=== PATIENT | male | born 1995 ===

== ENCOUNTER 2020-06-05 11:09 | Outpatient (REF) | payer MEDICARE, SELFPAY | END 2020-06-05 11:10 | disposition home or self-care (01) | LOC: HO.LAB 11:09 | PROVIDERS: PCP Nurse Practitioner Family; Visit Provider Internal Medicine | DX: Z20.828 Contact with and (suspected) exposure to other viral communicable diseases (principal) | CPT/HCPCS: C9803; U0003 ==

== ENCOUNTER 2022-06-05 12:13 | Emergency (ER) | payer SELFPAY ==
[2022-06-05 12:42] VITALS: BP 141/76; PULSE 96; RESP 18; TEMP 36.8; O2SAT 96; BMI 34.7
--- NOTE | 2022-06-05 12:46 | ED_ITS ---
HPI - General Adult General Chief complaint: Upper Respiratory Symptoms Stated complaint: COVID + Sore Throat Time Seen by Provider: 06/05/22 12:45 Source: patient Mode of arrival: ambulatory Limitations: no limitations History of Present Illness HPI narrative: Patient is a 26 year old assigned male at with no reported medical history presenting to the emergency department today with a sore throat. Patient states that he was diagnosed with COVID-19 on the week of and is still having a sore throat. Patient denies any dizziness, lightheadedness, abdominal pain, nausea, vomiting, fever, chills, blurry vision, double vision, loss of vision, chest pain, difficulty breathing, shortness of breath, back pain, night sweats, pain with urination, increased urinary frequency, increased urinary urgency, blood in his urine or stool, syncope or a near syncopal episode, recent trauma or falls, bowel incontinence, bladder incontinence, bowel retention, bladder retention, or any other complaints at this time. Onset (ago): day(s) Radiation: non-radiation Severity: mild Severity scale (1-10): 2 Relieving factors: none Exacerbating factors: none Associated symptoms: denies other symptoms Treatments prior to arrival: none Related Data Previous Rx's Medication Instructions Recorded lidocaine HCl 2 % mucosal solution 1.25 ml mucous membrane BID #100 mL 06/05/22 (Lidocaine Viscous) prednisone 20 mg tablet 20 mg PO DAILY 5 days #5 tabs 06/05/22 Allergies Allergy/AdvReac Type Severity Reaction Status Date / Time No Known Allergies Allergy Unverified 03/21/20 16:53 Review of Systems Constitutional: Constitutional: Reports no additional constitutional complaints, Denies chills, Denies fever(s) and Denies night sweats Eyes: Eyes: Reports no additional eye complaints, Denies blurry vision, Denies change in vision, Denies diplopia, Denies eye discharge, Denies loss of vision and Denies eye pain ENT: Denies dizziness and Reports sore throat Cardiovascular: Cardiovascular: Reports no additional cardiovascular complaints, Denies chest pain, Denies lightheadedness, Denies Loss of Consciousness and Denies dyspnea Respiratory: Respiratory: Reports no additional respiratory complaints and Den ies dyspnea Gastrointestinal: Gastrointestinal: Reports no additional gastrointestinal complaints, Denies abdominal pain, Denies melena, Denies hematochezia, Denies change in bowel habits and Denies change in stool character Genitourinary: Genitourinary: Reports no additional male genitourinary complaints, Denies hematuria, Denies oliguria, Denies difficulty urinating, Denies dysuria, Denies urinary frequency, Denies urinary hesitancy, Denies urinary incontinence and Denies urinary urgency Musculoskeletal: Musculoskeletal: Reports no additional musculoskeletal complaints, Denies numbness and Denies tingling Neurologic: Denies dizziness, Denies loss of vision, Denies numbness and Denies tingling Psychiatric: Psychiatric: Reports no additional psychiatric complaints Endocrine: Endocrine: Reports no additional endocrine complaints Hematologic/Lymphatic: Hematologic/Lymphatic: Reports no additional hematologic/lymphatic complaints Allergic/Immunologic: Allergic/Immunologic: Reports no additional allergic/immunologic complaints [facility] Past Medical History Attestation statement: The following information was validated with the patient. Source: old records reviewed Social History Social History Advance Directives: No Advance Directives Information Provided: No Physical Exam ED Vital Signs: Vital Signs - 24 hr 06/05/22 12:42 Temperature 98.3 F Pulse Rate 96 Respiratory Rate 18 Blood Pressure 141/76 H Pulse Oximetry 96 Oxygen Delivery Method Room Air BMI result Body Mass Index 34.7 Const General: cooperative, no acute distress, alert and awake Nutritional Appearance: well nourished Orientation/consciousness: patient oriented x3 Limitations: no limitations HENMT Head: Yes normal to inspection and Yes atraumatic Ears: hearing grossly normal bilaterally and external ears normal General nose exam: Normal external nose present, no nasal discharge noted and no epistaxis Face and sinus: Yes normal facial exam, No abrasion and No laceration Mouth: Normal oral and palatal mucosa present, no drooling and no muffled voice Throat: Yes posterior oropharynx normal Eyes General: appearance normal, both eyes and all related structures Periorbital: periorbital findings normal Eyelids: Yes eyelids normal Conjunctivae: conjunctivae normal Pupils: Equal, round and reactive pupils present EOM: EOMs intact bilaterally Neck Neck: Yes normal visual inspection, Yes full ROM and Yes no lymphadenopathy Chest Chest palpation & inspection: normal inspection of the chest Resp Effort & Inspection: normal respiratory effort and able to speak in complete sentences Auscultation: clear to auscultation bilaterally Cardio Rate: regular rate Rhythm: regular rhythm GI Inspection: Yes normal to inspection Neuro General: patient oriented x3 and moves all extremities Cranial nerves: Yes Equal, round and reactive pupils present Cognition (Neuro): normal cognition Motor exam (neuro): 5/5 motor strength present throughout Sensory Exam: Normal double simultaneous stimulation for sensation Coordination: [id number] test normal Extrem General: Yes normal to inspection, Yes full ROM and Yes capillary refill normal Psych Appearance: grossly normal Mental Status: mental status grossly normal Affect: normal affect Attitude: cooperative Thought process: Normal thought process present Thought content: Normal thought content present Insight: Good insight present (Psych) Medical Decision Making MDM Narrative Medical decision making narrative: Patient is a 26 year old assigned male at with no reported medical history presenting to the emergency department today with a sore throat. Patient's physical exam was unremarkable. Patient's clinical presentation is most consistent with persistent COVID-19 symptoms / pharyngitis. I explained my physical exam findings as well as all test results to the patient. I answered all questions asked by the patient. I stressed the importance of the patient taking his medication as prescribed. I stressed the importance of the patient following up with his primary care provider. I stressed the importance of the patient returning to the emergency department immediately if his symptoms were to worsen or if he were to develop any dizziness, shortness of breath, difficulty breathing, chest pain, blurry vision, loss of vision, nausea, vomiting, abdominal pain, fever, chills, back pain, or any other complaints. Patient verbalized agreement and understanding with this treatment plan and discharge. Medical Records Medical records reviewed: Yes I reviewed the patient's medical records. Discharge Plan Discharge Clinical Impression: Pharyngitis Patient Disposition: Home, Self-Care Instructions: Pharyngitis (ED) Additional Instructions: Follow up with your primary care provider. Return to the emergency department immediately if your symptoms worsen or if you develop any dizziness, shortness of breath, difficulty breathing, chest pain, blurry vision, loss of vision, nausea, vomiting, abdominal pain, fever, chills, back pain, or any other complaints. Prescriptions: New prednisone 20 mg tablet 20 mg PO DAILY 5 Days Qty: 5 0RF lidocaine HCl [Lidocaine Viscous] 2 % solution 1.25 ml mucous membrane BID Qty: 100 0RF Referrals: Esme Camarillo NP [Primary Care Provider] - Interventions: ED Discharge Assessment Last Done: 06/05/22 12:51 Discharge Date/Time: 06/05/22 12:53 Print Language: Maltese
== END 2022-06-05 12:53 | disposition home or self-care (01) ==
PROVIDERS: Emergency Provider Student in an Organized Health Care Education/Training Program; PCP Nurse Practitioner Family
DX: J02.9 Acute pharyngitis, unspecified (principal); U07.1 COVID-19
CPT/HCPCS: 99282

== ENCOUNTER 2022-12-13 12:55 | Emergency (ER) | payer SELFPAY ==
--- NOTE | ~2022-12-13 | XR_ITS ---
EXAMINATION: XR CHEST CLINICAL INFORMATION: Right-sided chest pain. COMPARISON: None available. TECHNIQUE: 2 views of the chest were obtained. FINDINGS: No significant abnormality is noted involving the heart, lungs, mediastinum, bony thorax or soft tissues. XR/XR chest 2V IMPRESSION: No acute cardiopulmonary process.
--- NOTE | ~2022-12-13 | US_ITS ---
EXAMINATION: US ABDOMEN LIMITED CLINICAL INFORMATION: Right upper quadrant abdominal pain.. COMPARISON: None available. TECHNIQUE: Real-time imaging of the right upper quadrant abdominal viscera. FINDINGS: PANCREAS: Largely obscured from visualization by overlying bowel gas. LIVER: Somewhat limited evaluation due to shadowing from the overlying ribs. The liver is normal in size and contour. Diffusely increased echogenicity of the visualized liver parenchyma is noted consistent with steatosis. There are focal areas of fatty sparing around the gallbladder. Evaluation for focal hepatic lesion in the setting of underlying steatosis is limited. No intrahepatic biliary ductal dilatation. GALLBLADDER: There is [id number] distention of the gallbladder which is stable with large volume sludge. Small stones are noted in the gallbladder. Wall of the gallbladder is not thickened. No pericholecystic fluid. Reportedly patient was tender while scanning over the area of the gallbladder. COMMON BILE DUCT: Not well seen. Presumed to proximal common bile duct measures 0.4 cm in diameter. RIGHT KIDNEY: Small portion of the upper pole of the kidneys obscured by overlying bowel gas.. No hydronephrosis. No renal calculi or focal parenchymal lesions. The kidney measures 10.5 cm in maximum dimension. FREE FLUID: None. US/US abdomen limited IMPRESSION: Hepatic steatosis with focal areas of fatty sparing around the gallbladder. Large volume sludge in the gallbladder. Small gallstones. Reportedly patient was tender while scanning over the gallbladder. Although, no definite gallbladder wall thickening or pericholecystic fluid is noted, given the stated tenderness over the gallbladder clinical correlation would be needed for assessment of acute cholecystitis. If clinically deemed necessary hepatobiliary nuclear scan may be considered for further evaluation.
[2022-12-13 13:04] VITALS: BP 142/105; PULSE 90; RESP 18; TEMP 36.7; O2SAT 99; BMI 37.8
--- NOTE | 2022-12-13 13:08 | ED_ITS ---
HPI - General Adult General Chief complaint: Abdominal Pain Stated complaint: stabbing pain r upper side Time Seen by Provider: 12/13/22 16:55 Source: patient Mode of arrival: ambulatory Limitations: no limitations History of Present Illness HPI narrative: 27-year-old male with no known medical history presents to the ER with right upper quadrant and chest wall pain which began last evening at 23:00 after eating pork ribs. This was associated with vomiting. No diarrhea, constipation, urinary symptoms, fevers or chills. Related Data Previous Rx's Medication Instructions Recorded lidocaine HCl 2 % mucosal solution 1.25 ml mucous membrane BID #100 mL 06/05/22 (Lidocaine Viscous) prednisone 20 mg tablet 20 mg PO DAILY 5 days #5 tabs 06/05/22 Allergies Allergy/AdvReac Type Severity Reaction Status Date / Time No Known Allergies Allergy Unverified 03/21/20 16:53 Review of Systems Review of Systems: Yes all other systems are reviewed and are negative Constitutional: Constitutional: Reports no additional constitutional complaints, Denies body ache(s), Denies chills, Denies fever(s), Denies headache(s) and Denies weakness Eyes: Eyes: Reports no additional eye complaints and Denies change in vision ENT: Reports system reviewed and no additional complaints, except as documented, Denies dizziness, Denies headache(s), Denies nasal congestion, Denies nasal discharge and Denies neck pain Cardiovascular: Cardiovascular: Reports no additional cardiovascular complaints, Denies chest pain, Denies leg edema and Denies dyspnea Respiratory: Respiratory: Reports no additional respiratory complaints, Denies cough and Denies dyspnea Gastrointestinal: Gastrointestinal: Reports no additional gastrointestinal complaints, Reports abdominal pain, Denies diarrhea, Reports nausea and Reports vomiting Genitourinary: Genitourinary: Denies urinary incontinence Musculoskeletal: Musculoskeletal: Reports no additional musculoskeletal complaints, Denies back pain, Denies arthralgias, Denies joint swelling, Denies neck pain, Denies numbness and Denies tingling Integumentary/Breasts: Skin/Breast: Reports system reviewed and no additional complaints, except as docu and Denies rash Neurologic: Reports system reviewed and no additional complaints, except as documented, Denies dizziness, Denies headache(s), Denies numbness, Denies tingling and Denies weakness [facility] Past Medical History Attestation statement: The following information was validated with the patient. Source: old records reviewed and nursing notes reviewed Social History Social History Smoked in Last 30 Days: No Substance Use Type: Marijuana Advance Directives: No Physical Exam ED Vital Signs: Vital Signs - 24 hr 12/13/22 13:04 12/13/22 16:16 12/13/22 18:35 Temperature 98.1 F 97.4 F 98.1 F Pulse Rate 90 80 73 Respiratory Rate 18 16 20 Blood Pressure 142/105 H 141/88 H 149/81 H Pulse Oximetry 99 96 99 Oxygen Delivery Method Room Air Room Air Room Air 12/13/22 19:18 12/13/22 19:45 Temperature 98.4 F 98.3 F Pulse Rate 66 68 Respiratory Rate 18 14 Blood Pressure 132/77 137/91 H Pulse Oximetry 99 99 Oxygen Delivery Method Room Air BMI result Body Mass Index 37.8 Const Other: In pain General: cooperative, healthy appearing and comfortable Orientation/consciousness: patient oriented x3 Limitations: no limitations HENMT Head: Yes normal to inspection Ears: hearing grossly normal bilaterally Eyes General: appearance normal, both eyes and all related structures Pupils: Equal, round and reactive pupils present Neck Neck: Yes normal visual inspection and Yes full ROM Chest Chest palpation & inspection: normal inspection of the chest Resp Effort & Inspection: normal respiratory effort Auscultation: clear to auscultation bilaterally Cardio Rate: regular rate Rhythm: regular rhythm Peripheral pulses: Peripheral pulses 2+ throughout GI Inspection: Yes normal to inspection Palpation (GI): Soft to palpation, Tenderness to palpation present (GI) in the RUQ; with no rebound tenderness and no guarding Auscultation: normal bowel sounds Skin General skin exam: no rashes or lesions noted Neuro General: patient oriented x3 and moves all extremities Cranial nerves: Yes Equal, round and reactive pupils present Cognition (Neuro): normal cognition Gait exam (Neuro): Normal gait present Course Course Course Narrative: RME: 27 yold male presents to the ED For RUQ pain and right chest pain and vomitting. no leg swelling, calf pain, coughing up blood. labs, US, chest xray ordered Reevaluation(s) Reevaluation #1: Ultrasound concerning for cholelithiasis. No evidence of acute cholecystitis. Patient to receive IV fluids, antiemetic and analgesia and then will reassess Reevaluation #2: 2100-pain is well controlled. Patient tolerating p.o. no vomiting. Reviewed low-fat diet at home. Recommend follow-up outpatient with surgery. Reviewed worrisome signs and symptoms when to return to the emergency room. Comfortable plan for discharge home. Medications Administered Discontinued Medications Generic Name Dose Route Start Last Admin Trade Name Reginaldq PRN Reason Stop Dose Admin Hydromorphone HCl 0.5 mg 12/13/22 19:23 12/13/22 20:08 Hydromorphone Hcl 0.5 Mg/0.5 Ml Syringe IVPUSH 12/13/22 19:24 0.5 mg ONCE ONE Administration Protocol Sodium Chloride 1,000 mls @ 999 mls/hr 12/13/22 17:30 12/13/22 19:23 Ns IV 12/13/22 18:30 Infused .Q1H1M STA Infusion Morphine Sulfate 4 mg 12/13/22 17:30 12/13/22 17:57 Morphine Sulfate 4 Mg/Ml Cartridge IVPUSH 12/13/22 17:31 4 mg ONCE ONE Administration Protocol Ondansetron HCl 4 mg 12/13/22 17:30 12/13/22 17:57 Ondansetron Hcl 4 Mg/2 Ml Vial IVPUSH 12/13/22 17:31 4 mg ONCE ONE Administration Medical Decision Making Medical Decision Making [facility] Narrative: 27-year-old male here with right upper quadrant pain and vomiting which began last evening after eating pork ribs. On exam patient tenderness the right upper quadrant with no rebound or guarding. Will check labs, UA, abdominal ultrasound Differential Diagnosis Differential Diagnoses: The differential diagnosis associated with the presentation includes Cholecystitis, cholelithiasis, renal colic, pyelonephritis Lab Data [facility] Lab Attestation statement: I reviewed the patient's lab results. 12/13/22 13:35 12/13/22 13:35 Labs: Lab Results 12/13/22 12/13/22 12/13/22 Range/Units 13:35 13:35 13:35 WBC 8.2 (4.8-10.8) X10*3/uL RBC 4.66 (4.60-5.80) X10*6/uL Hgb 14.3 (14.0-18.0) g/dl Hct 40.2 L (42.0-52.0) % MCV 86.3 (80.0-98.0) fL MCH 30.7 (27.0-33.0) pg MCHC 35.6 (31.0-36.0) g/dl RDW 12.7 (11.0-16.0) % Plt Count 239 (160-400) X10*3/uL MPV 11.5 (9.4-12.4) fL Immature Gran % (Auto) 0.4 (0.0-0.4) % Neut % (Auto) 61.0 (45-73) % Lymph % (Auto) 30.1 (20-40) % [place] % (Auto) 7.4 (2-11) % Eos % (Auto) 0.6 (0-4) % Baso % (Auto) 0.5 (0-2) % Lymph # (Auto) 2.5 (1.2-4.9) X10*3/uL [place] # (Auto) 0.6 (0.1-1.2) X10*3/uL Eos # (Auto) 0.1 (0.0-0.4) X10*3/uL Baso # (Auto) 0.0 (0.0-0.2) X10*3/uL Abs Immat Gran (auto) 0.03 (0.00-0.03) X10*3/uL Absolute Neuts (auto) 5.0 (2.0-8.3) x10*3/uL Absolute Nucleated RBC 0.000 (0.0-0.012) X10*3/uL Nucleated RBC % (auto) 0.0 (0.0-0.2) /100WBC PT 11.0 (10.0-13.1) SEC INR 1.0 (0.9-1.1) APTT 34.9 (26.0-36.4) SEC Sodium 140 (135-145) mmol/L Potassium 4.0 (3.3-5.1) mmol/L Chloride 107 (96-108) mmol/L Carbon Dioxide 24 (22-29) mmol/L Anion Gap 13 (12-20) BUN 11 (9-16) mg/dL Creatinine 0.83 (0.5-1.4) mg/dL Estim Creat Clear Calc 140.1 Estimated GFR > 60 Random Glucose 115 (60-115) mg/dL Calcium 9.7 (8.4-10.2) mg/dL Total Bilirubin 0.6 (0.0-1.0) mg/dL AST 28 (5-37) U/L ALT 48 H (0-40) U/L Alkaline Phosphatase 75 (39-117) U/L Total Protein 7.9 (6.5-8.0) g/dL Albumin 4.8 (3.5-5.0) g/dL Lipase 13 (8-78) U/L Urine Color Urine Appearance Urine pH (5.0-9.0) Ur Specific [place] (1.005-1.025) Urine Protein (Neg-Trace) mg/dL Urine Glucose (UA) (Negative) mg/dL Urine Ketones (Negative) mg/dL Urine Blood (Negative) Urine Nitrite (Negative) Ur Leukocyte Esterase (Negative) 12/13/22 Range/Units 19:56 WBC (4.8-10.8) X10*3/uL RBC (4.60-5.80) X10*6/uL Hgb (14.0-18.0) g/dl Hct (42.0-52.0) % MCV (80.0-98.0) fL MCH (27.0-33.0) pg MCHC (31.0-36.0) g/dl RDW (11.0-16.0) % Plt Count (160-400) X10*3/uL MPV (9.4-12.4) fL Immature Gran % (Auto) (0.0-0.4) % Neut % (Auto) (45-73) % Lymph % (Auto) (20-40) % [place] % (Auto) (2-11) % Eos % (Auto) (0-4) % Baso % (Auto) (0-2) % Lymph # (Auto) (1.2-4.9) X10*3/uL [place] # (Auto) (0.1-1.2) X10*3/uL Eos # (Auto) (0.0-0.4) X10*3/uL Baso # (Auto) (0.0-0.2) X10*3/uL Abs Immat Gran (auto) (0.00-0.03) X10*3/uL Absolute Neuts (auto) (2.0-8.3) x10*3/uL Absolute Nucleated RBC (0.0-0.012) X10*3/uL Nucleated RBC % (auto) (0.0-0.2) /100WBC PT (10.0-13.1) SEC INR (0.9-1.1) APTT (26.0-36.4) SEC Sodium (135-145) mmol/L Potassium (3.3-5.1) mmol/L Chloride (96-108) mmol/L Carbon Dioxide (22-29) mmol/L Anion Gap (12-20) BUN (9-16) mg/dL Creatinine (0.5-1.4) mg/dL Estim Creat Clear Calc Estimated GFR Random Glucose (60-115) mg/dL Calcium (8.4-10.2) mg/dL Total Bilirubin (0.0-1.0) mg/dL AST (5-37) U/L ALT (0-40) U/L Alkaline Phosphatase (39-117) U/L Total Protein (6.5-8.0) g/dL Albumin (3.5-5.0) g/dL Lipase (8-78) U/L Urine Color Yellow Urine Appearance Clear Urine pH 6.0 (5.0-9.0) Ur Specific [place] 1.015 (1.005-1.025) Urine Protein Negative (Neg-Trace) mg/dL Urine Glucose (UA) Negative (Negative) mg/dL Urine Ketones 15 (Negative) mg/dL Urine Blood Negative (Negative) Urine Nitrite Negative (Negative) Ur Leukocyte Esterase Negative (Negative) Independent Interpretation I performed an independent interpretation of an: Plain X-Ray and Ultrasound Interpretation: I independently reviewed the ultrasound agree with radiologist's report Radiology Impression Discussion of test interpretation with radiology: I have reviewed the radiologist's reading. Radiologist Impression: [address] [address] Ultrasound Report Signed Patient: Jaylon Delgado MR#: [id number] : 1995 Acct:[id number] Age/Sex: 27 / M ADM Date: 12/13/22 Loc: HO.ED Attending Dr: Ordering Physician: Samir Shipley Date of Service: 12/13/22 Procedure(s): US abdomen limited Accession Number(s): [id number] cc: Samir Shipley~ EXAMINATION: US ABDOMEN LIMITED CLINICAL INFORMATION: Right upper quadrant abdominal pain.. COMPARISON: None available. TECHNIQUE: Real-time imaging of the right upper quadrant abdominal viscera. FINDINGS: PANCREAS: Largely obscured from visualization by overlying bowel gas. LIVER: Somewhat limited evaluation due to shadowing from the overlying ribs. The liver is normal in size and contour. Diffusely increased echogenicity of the visualized liver parenchyma is noted consistent with steatosis. There are focal areas of fatty sparing around the gallbladder. Evaluation for focal hepatic lesion in the setting of underlying steatosis is limited. No intrahepatic biliary ductal dilatation. GALLBLADDER: There is [id number] distention of the gallbladder which is stable with large volume sludge. Small stones are noted in the gallbladder. Wall of the gallbladder is not thickened. No pericholecystic fluid. Reportedly patient was tender while scanning over the area of the gallbladder. COMMON BILE DUCT: Not well seen. Presumed to proximal common bile duct measures 0.4 cm in diameter. RIGHT KIDNEY: Small portion of the upper pole of the kidneys obscured by overlying bowel gas.. No hydronephrosis. No renal calculi or focal parenchymal lesions. The kidney measures 10.5 cm in maximum dimension. FREE FLUID: None. US/US abdomen limited IMPRESSION: Hepatic steatosis with focal areas of fatty sparing around the gallbladder. ? Large volume sludge in the gallbladder. Small gallstones. Reportedly patient was tender while scanning over the gallbladder. Although, no definite gallbladder wall thickening or pericholecystic fluid is noted, given the stated tenderness over the gallbladder clinical correlation would be needed for assessment of acute cholecystitis. If clinically deemed necessary hepatobiliary nuclear scan may be considered for further evaluation. [address] [address] XRay Report Signed Patient: Jaylon Delgado MR#: [id number] : 1995 Acct:[id number] Age/Sex: 27 / M ADM Date: 12/13/22 Loc: HO.ED Attending Dr: Ordering Physician: Samir Shipley Date of Service: 06/11/23 Procedure(s): XR chest 2V Accession Number(s): [id number] cc: Samir Shipley~ EXAMINATION: XR CHEST CLINICAL INFORMATION: Right-sided chest pain. COMPARISON: None available. TECHNIQUE: 2 views of the chest were obtained. FINDINGS: No significant abnormality is noted involving the heart, lungs, mediastinum, bony thorax or soft tissues. XR/XR chest 2V IMPRESSION: No acute cardiopulmonary process. Discharge Plan Discharge Clinical Impression: Gallstones Patient Disposition: Home, Self-Care Instructions: Gallstones (ED) Additional Instructions: Low-fat diet Follow-up with General surgery Prescriptions: No Action prednisone 20 mg tablet 20 mg PO DAILY 5 Days Qty: 5 0RF lidocaine HCl [Lidocaine Viscous] 2 % solution 1.25 ml mucous membrane BID Qty: 100 0RF Referrals: Ike Neville MD [Physician] - 5 days Interventions: ED Discharge Assessment Last Done: 12/13/22 20:56 Discharge Date/Time: 12/13/22 20:57
[2022-12-13 13:39] LABS: MANUAL DIFF FLAG NO
[2022-12-13 13:40] LABS: Basophils Percent Auto 0.5 % (0-2); Eosinophils Absolute Auto 0.1 X10*3/uL (0.0-0.4); Eosinophils Percent Auto 0.6 % (0-4); Hematocrit 40.2 % (42.0-52.0); Hemoglobin 14.3 g/dl (14.0-18.0); Imm Gran Abs Auto 0.03 X10*3/uL (0.00-0.03); Imm Gran Pct Auto 0.4 % (0.0-0.4); Lymphocytes Absolute Auto 2.5 X10*3/uL (1.2-4.9); Lymphocytes Percent Auto 30.1 % (20-40); Mean Corpuscular HGB Conc 35.6 g/dl (31.0-36.0); Mean Corpuscular Hemoglobin 30.7 pg (27.0-33.0); Mean Corpuscular Volume 86.3 fL (80.0-98.0); Mean Platelet Volume 11.5 fL (9.4-12.4); Monocytes Absolute Auto 0.6 X10*3/uL (0.1-1.2); Monocytes Percent Auto 7.4 % (2-11); Platelet Count 239 X10*3/uL (160-400); Red Blood Count 4.66 X10*6/uL (4.60-5.80); Red Cell Distribution Width 12.7 % (11.0-16.0); White Blood Count 8.2 X10*3/uL (4.8-10.8)
[2022-12-13 13:47] LABS: Partial Thromboplastin Time 34.9 SEC (26.0-36.4)
[2022-12-13 14:05] LABS: Alanine Aminotransferase 48 U/L (0-40); Albumin Level 4.8 g/dL (3.5-5.0); Alkaline Phosphatase 75 U/L (39-117); Anion Gap 13 (12-20); Aspartate Amino Transferase 28 U/L (5-37); Bilirubin Total 0.6 mg/dL (0.0-1.0); Blood Urea Nitrogen 11 mg/dL (9-16); Calcium 9.7 mg/dL (8.4-10.2); Carbon Dioxide 24 mmol/L (22-29); Chloride 107 mmol/L (96-108); Creatinine Clr Calc Pharmacy 140.1; Estimated Glomerular Filt Rate > 60; Glucose Random 115 mg/dL (60-115); Lipase 13 U/L (8-78); Sodium 140 mmol/L (135-145); Total Protein 7.9 g/dL (6.5-8.0)
[2022-12-13 16:16] VITALS: BP 141/88; PULSE 80; RESP 16; TEMP 36.3; O2SAT 96
[2022-12-13] MEDS: 0.9 % Sodium Chloride 1,000 ML 999 ML IV (17:54)
[2022-12-13] MEDS: ondansetron HCL 4 MG/2 ML VIAL IVPUSH (17:57)
[2022-12-13] MEDS: Morphine Sulfate 4 MG/ML CARTRIDGE IVPUSH (17:57)
[2022-12-13 18:35] VITALS: BP 149/81; PULSE 73; RESP 20; TEMP 36.7; O2SAT 99
[2022-12-13 19:18] VITALS: BP 132/77; PULSE 66; RESP 18; TEMP 36.9; O2SAT 99
--- NOTE | 2022-12-13 19:23 | PC.NURSE ---
Assumed cafre of pt. Pt lying on stretcher, sleeping. When awakened, pt stated pain was not resolved with previous medicatoins. PA notified. plan to remedicate for pain and reassess for D/C home ro admission for pain management. VSS, MERLE. of note, pt fell back asleep immediately after assessment.
[2022-12-13 19:45] VITALS: BP 137/91; PULSE 68; RESP 14; TEMP 36.8; O2SAT 99
[2022-12-13 20:05] LABS: Appearance Urine Clear; Color Urine Yellow; Glucose Urine UA Negative (Negative); Leukocyte Esterase Urine Negative (Negative); Nitrite Urine Negative (Negative); Specific Gravity - Urine 1.015 (1.005-1.025); Urine Blood Negative (Negative); Urine Ketones 15 mg/dL (Negative); Urine Protein Negative (Neg-Trace)
[2022-12-13] MEDS: HYDROmorphone HCl 0.5 MG/0.5 ML SYRINGE IVPUSH (20:08)
== END 2022-12-13 20:57 | disposition home or self-care (01) ==
PROVIDERS: Nurse Practitioner Family; Physician Assistant; Emergency Provider Internal Medicine; PCP Nurse Practitioner Family
DX: K80.20 Calculus of gallbladder without cholecystitis without obstruction (principal); R07.89 Other chest pain; R10.11 Right upper quadrant pain; Z79.899 Other long term (current) drug therapy
CPT/HCPCS: 36415; 71046; 76705; 80053; 81003; 83690; 85025; 85610; 85730; 96361; 96374; 96375; 99284; 99285; J1170; J2270; J2405

== ENCOUNTER → 2022-12-14 15:27 | Outpatient (BNVA) | payer SELFPAY | PROVIDERS: PCP Nurse Practitioner Family; Visit Provider Surgery | DX: K80.20 Calculus of gallbladder without cholecystitis without obstruction (principal); Z79.899 Other long term (current) drug therapy | CPT/HCPCS: 99202 ==

== ENCOUNTER 2023-01-15 04:51 | Observation (INO) | payer MEDICARE, MEDICAID, SELFPAY ==
[2023-01-15] VITALS (15 sets, daily range): BP systolic 110–182; BP diastolic 78–101; PULSE 66–109; RESP 14–20; TEMP 36.4–37.2; O2SAT 96–100; BMI 34.3
--- NOTE | ~2023-01-15 | US_ITS ---
EXAMINATION: US ABDOMEN LIMITED CLINICAL INFORMATION: Right upper quadrant pain for 2.5 days and vomiting. COMPARISON: 12/13/2022 TECHNIQUE: Real-time imaging of the right upper quadrant abdominal viscera. FINDINGS: PANCREAS: Pancreas is obscured by bowel gas. LIVER: Liver is of diffuse increased echogenicity with focal fatty sparing about the gallbladder fossa. Liver is enlarged measuring 17.7 cm. No focal hepatic lesion. There is no intrahepatic biliary duct dilatation seen. GALLBLADDER: Gallbladder is distended, filled with sludge and gallstones. 1.4 cm gallstone seen in the gallbladder neck, nonmobile in decubitus and upright positions. Gallbladder wall thickening is identified to 5 mm. A small amount of free fluid adjacent to the gallbladder and/or gallbladder wall fluid seen. Tenderness was elicited during the study. COMMON BILE DUCT: Normal in caliber measuring 4.4 cm in diameter. US/US abdomen limited IMPRESSION: Distended sludge and gallstone filled gallbladder with 1.4 cm stone impacted in the neck. Associated gallbladder wall thickening, wall fluid and/or pericholecystic fluid and tenderness during study. Findings highly suspicious for acute cholecystitis.
[2023-01-15 05:26] LABS: Basophils Percent Auto 0.3 % (0-2); Eosinophils Absolute Auto 0.1 X10*3/uL (0.0-0.4); Eosinophils Percent Auto 0.7 % (0-4); Hematocrit 38.5 % (42.0-52.0); Hemoglobin 13.6 g/dl (14.0-18.0); Imm Gran Abs Auto 0.04 X10*3/uL (0.00-0.03); Imm Gran Pct Auto 0.3 % (0.0-0.4); Lymphocytes Absolute Auto 2.7 X10*3/uL (1.2-4.9); Lymphocytes Percent Auto 21.8 % (20-40); MANUAL DIFF FLAG NO; Mean Corpuscular HGB Conc 35.3 g/dl (31.0-36.0); Mean Corpuscular Hemoglobin 30.4 pg (27.0-33.0); Mean Corpuscular Volume 86.1 fL (80.0-98.0); Mean Platelet Volume 11.9 fL (9.4-12.4); Monocytes Absolute Auto 1.1 X10*3/uL (0.1-1.2); Monocytes Percent Auto 8.9 % (2-11); Neutrophils Absolute Auto 8.3 x10*3/uL (2.0-8.3); Platelet Count 226 X10*3/uL (160-400); Red Blood Count 4.47 X10*6/uL (4.60-5.80); Red Cell Distribution Width 12.4 % (11.0-16.0); White Blood Count 12.3 X10*3/uL (4.8-10.8)
[2023-01-15 06:20] LABS: Alanine Aminotransferase 29 U/L (0-40); Albumin Level 4.4 g/dL (3.5-5.0); Alkaline Phosphatase 79 U/L (39-117); Aspartate Amino Transferase 17 U/L (5-37); Bilirubin Direct 0.2 mg/dL (0.0-0.5); Bilirubin Total 0.6 mg/dL (0.0-1.0); Blood Urea Nitrogen 8 mg/dL (9-16); Calcium 9.6 mg/dL (8.4-10.2); Chloride 107 mmol/L (96-108); Creatinine Clr Calc Pharmacy 153.7; Estimated Glomerular Filt Rate > 60; Glucose Random 113 mg/dL (60-115); Lipase 13 U/L (8-78); Potassium 3.7 mmol/L (3.3-5.1); Sodium 139 mmol/L (135-145); Total Protein 7.5 g/dL (6.5-8.0)
--- NOTE | 2023-01-15 06:37 | ED_ITS ---
HPI - Abdominal Pain General Chief Complaint: Abdominal Pain Stated Complaint: gallstones Time Seen by Provider: 01/15/23 06:24 Source: patient Mode of arrival: EMS History of Present Illness HPI narrative: 27-year-old male with known cholelithiasis and now returns via EMS with 3 days of worsening right upper quadrant pain, nausea/vomiting, chills but denies any fevers or dysuria. Related Data Previous Rx's Medication Instructions Recorded lidocaine HCl 2 % mucosal solution 1.25 ml mucous membrane BID #100 mL 06/05/22 (Lidocaine Viscous) prednisone 20 mg tablet 20 mg PO DAILY 5 days #5 tabs 06/05/22 Allergies Allergy/AdvReac Type Severity Reaction Status Date / Time No Known Allergies Allergy Verified 01/15/23 05:11 Review of Systems Review of Systems Pertinent positives and negatives as stated in HPI [facility] Past Medical History Source: nursing notes reviewed Medical History Gallstones Overweight Social History Social History Substance Use Type: Marijuana Advance Directives: No Advance Directives Information Provided: No Physical Exam ED Vital Signs: Vital Signs - 24 hr 01/15/23 05:08 Temperature 98.7 F Pulse Rate 73 Respiratory Rate 20 Blood Pressure 141/84 H Pulse Oximetry 98 Oxygen Delivery Method Room Air BMI result Body Mass Index 34.3 VITAL SIGNS: Reviewed. GENERAL: Well developed, well nourished, in no acute distress. HEAD: Normocephalic/atraumatic EYES: PERRLA, EOMI EARS: Ext canals without abnormality LUNGS: Normal breath sounds. No adventitious sounds or accessory muscle use. SpO2<98> CARDIOVASCULAR: Regular rate and rhythm without noted murmurs ABDOMEN: Soft, right upper quadrant tenderness, Reddy's positive, non-distended with bowel sounds. MUSCULOSKELETAL: No tenderness, deformities, or effusions noted on gross inspection. EXTREMITIES: No cyanosis, clubbing or edema. SKIN: Inspection of the skin reveals no rashes NEUROLOGIC: Alert and oriented x 4. Strength and sensation to light touch were grossly intact x 4. Medical Decision Making Medical Decision Making [facility] Narrative: 0635: 27-year-old male with history and clinical presentation, DDX: Cholecystitis, biliary colic, choledocholithiasis, pancreatitis, gastritis. I reviewed all investigations and the hematologic indices demonstrate leukocytosis without left shift and mild anemia. Otherwise chemistry indices are without significant findings, lipase is benign and there is no elevation of the alkaline phosphatase arguing against any choledocholithiasis or pancreatitis. Prelim findings on ultrasound demonstrate stone in the neck of the gallbladder with gallbladder wall thickening and pericholecystic fluid consistent with acute cholecystitis. Will proceed with lactic acid/blood cultures and patient will receive antibiotics. Patient was also made NPO and will receive 1 L of IV fluids as well as pain medication. 0636: I discussed the case with General surgery, Dr. Jaquez. Differential Diagnosis Differential Diagnoses: The differential diagnosis associated with the presentation includes Please see the discussion above Admission/Observation Consideration of admission/observation: Escalation of care including admission/observation considered Consult Healthcare Provider Management of the patient was discussed with: Demographer Please see the discussion above Lab Data Please see the discussion above 01/15/23 05:21 01/15/23 05:54 Labs: Lab Results 01/15/23 01/15/23 Range/Units 05:21 05:54 WBC 12.3 H (4.8-10.8) X10*3/uL RBC 4.47 L (4.60-5.80) X10*6/uL Hgb 13.6 L (14.0-18.0) g/dl Hct 38.5 L (42.0-52.0) % MCV 86.1 (80.0-98.0) fL MCH 30.4 (27.0-33.0) pg MCHC 35.3 (31.0-36.0) g/dl RDW 12.4 (11.0-16.0) % Plt Count 226 (160-400) X10*3/uL MPV 11.9 (9.4-12.4) fL Immature Gran % (Auto) 0.3 (0.0-0.4) % Neut % (Auto) 68.0 (45-73) % Lymph % (Auto) 21.8 (20-40) % [place] % (Auto) 8.9 (2-11) % Eos % (Auto) 0.7 (0-4) % Baso % (Auto) 0.3 (0-2) % Lymph # (Auto) 2.7 (1.2-4.9) X10*3/uL [place] # (Auto) 1.1 (0.1-1.2) X10*3/uL Eos # (Auto) 0.1 (0.0-0.4) X10*3/uL Baso # (Auto) 0.0 (0.0-0.2) X10*3/uL Abs Immat Gran (auto) 0.04 H (0.00-0.03) X10*3/uL Absolute Neuts (auto) 8.3 (2.0-8.3) x10*3/uL Absolute Nucleated RBC 0.000 (0.0-0.012) X10*3/uL Nucleated RBC % (auto) 0.0 (0.0-0.2) /100WBC Sodium 139 (135-145) mmol/L Potassium 3.7 (3.3-5.1) mmol/L Chloride 107 (96-108) mmol/L BUN 8 L (9-16) mg/dL Creatinine 0.72 (0.5-1.4) mg/dL Estim Creat Clear Calc 153.7 Estimated GFR > 60 Random Glucose 113 (60-115) mg/dL Calcium 9.6 (8.4-10.2) mg/dL Total Bilirubin 0.6 (0.0-1.0) mg/dL Direct Bilirubin 0.2 (0.0-0.5) mg/dL AST 17 (5-37) U/L ALT 29 (0-40) U/L Alkaline Phosphatase 79 (39-117) U/L Total Protein 7.5 (6.5-8.0) g/dL Albumin 4.4 (3.5-5.0) g/dL Lipase 13 (8-78) U/L Radiology Impression Radiologist Impression: Cholecystitis, otherwise my interpretation is in agreement with radiology's impression. Discharge Plan Discharge Clinical Impression: Acute cholecystitis Patient Disposition: Admitted As Inpatient Prescriptions: No Action prednisone 20 mg tablet 20 mg PO DAILY 5 Days Qty: 5 0RF lidocaine HCl [Lidocaine Viscous] 2 % solution 1.25 ml mucous membrane BID Qty: 100 0RF
[2023-01-15] MEDS: HYDROmorphone HCl 0.5 MG/0.5 ML SYRINGE 0.25 MG IVPUSH (06:54)
[2023-01-15] MEDS: 0.9 % Sodium Chloride 1,000 ML 999 ML IV (06:54)
[2023-01-15 07:08] LABS: Lactic Acid 0.6 mmol/L (0.5-2.0)
[2023-01-15 07:19] LABS: Anion Gap 15 (12-20); Carbon Dioxide 22 mmol/L (22-29)
--- NOTE | 2023-01-15 07:28 | PM.HPGS ---
History of Present Illness History of Present Illness Date of Service: 01/15/23 Chief complaint: gallstones Narrative: Jaylon Lawson is a 27 year old male who presents with severe right upper quadrant pain radiating around to his back. Patient has had multiple bouts of biliary colic in the past and was seen emergency room recently with a similar episode. He has never been jaundiced before. He is tolerating his diet otherwise. Has regular bowel habits. Chart was reviewed and patient evaluated. [facility] Past Medical History Medical History Gallstones Overweight Social History Social History Substance Use Type: Marijuana Advance Directives: No Advance Directives Information Provided: No Meds Allergies Allergy/AdvReac Type Severity Reaction Status Date / Time No Known Allergies Allergy Verified 01/15/23 05:11 Active Medications: Current Medications Sodium Chloride (Ns) 1,000 mls @ 999 mls/hr IV .Q1H1M JASMEET Stop: 01/15/23 07:45 Last Admin: 01/15/23 06:54 Dose: 999 mls/hr Physical Exam Vital Signs: Vital Signs: Last Vital Signs Temp 98.7 F 01/15/23 05:08 Pulse 73 01/15/23 05:08 Resp 20 01/15/23 05:08 BP 141/84 H 01/15/23 05:08 Pulse Ox 98 01/15/23 05:08 O2 Del Method Room Air 01/15/23 05:08 BMI result Body Mass Index 34.3 Chest: Other: Chest breath sounds bilaterally, HS 1 in 2 GI: Other: abdomen corpulent, soft, marked right upper quadrant tenderness. Results Results Labs: Short CBC 01/15/23 Range/Units 05:21 WBC 12.3 H (4.8-10.8) X10*3/uL Hgb 13.6 L (14.0-18.0) g/dl Hct 38.5 L (42.0-52.0) % Plt Count 226 (160-400) X10*3/uL BMP 01/15/23 05:54 Sodium 139 Potassium 3.7 Chloride 107 Carbon Dioxide 22 BUN 8 L Creatinine 0.72 Calcium 9.6 Liver Function 01/15/23 Range/Units 05:54 Total Bilirubin 0.6 (0.0-1.0) mg/dL Direct Bilirubin 0.2 (0.0-0.5) mg/dL AST 17 (5-37) U/L ALT 29 (0-40) U/L Alkaline Phosphatase 79 (39-117) U/L Albumin 4.4 (3.5-5.0) g/dL Assessment and Plan (1) Acute cholecystitis: Status: Acute (2) Gallstones: Status: Acute Plan Sonogram is consistent with acute cholecystitis. Risks, benefits, alternatives of laparoscopic possible open cholecystectomy reviewed with the patient and included but not limited to bleeding, infection, recurrence of symptoms, numbness, pain, scarring, bowel injury or common bile duct injury or leak and the patient wishes to proceed. Arrangements will be made for this as an add on for today. All questions were answered. Time Spent With Patient Time: Total time managing care of this patient today ____ minutes. Quality Stroke Does the patient have a stroke diagnosis?: No VTE Prior VTE?: No VTE Risk Level:: Surgical - low VTE Device Contraindication: Treatment Not Indicated VTE Drug Contraindication: Treatment Not Indicated Procedures Date of Service Date of Service: 01/15/23
[2023-01-15] MEDS: ceFAZolin Sodium/Dextrose,Iso 2 GM/50 ML PIGGYBACK IV (08:07)
--- NOTE | 2023-01-15 08:38 | PHA.MEDREC ---
Pharmacy Consult ? Medication Reconciliation Pharmacy has completed the medication reconciliation. Patient only take Aleve as needed. Xena Moreland, BelkisD
[2023-01-15] MEDS: HYDROmorphone HCl 0.5 MG/0.5 ML SYRINGE IVPUSH (10:40)
[2023-01-15 10:42] LABS: Appearance Urine Clear; Color Urine Yellow; Glucose Urine UA Negative (Negative); Leukocyte Esterase Urine Negative (Negative); Nitrite Urine Negative (Negative); Specific Gravity - Urine 1.025 (1.005-1.025); Urine Blood Negative (Negative); Urine Ketones 15 mg/dL (Negative); Urine Protein Negative (Neg-Trace)
--- NOTE | 2023-01-15 11:44 | PC.NURSE ---
lower abdomen has small open areas from scratching.
--- NOTE | 2023-01-15 12:23 | HO.ANESPROP2 ---
HPI - Anesthesia Eval Consult details Narrative: for madelyn crocker PMFSH Active Problems Active Problems: All Active Problems (Updated 01/15/23 @ 06:44 by Jahaira Garcia MD) Acute cholecystitis (Acute) Gallstones (Acute) Overweight (Acute) Past Medical History Medical History Gallstones Overweight Family History Family history of problems with anesthesia: No Surgical History Surgical History Hx of tonsillectomy History of Problems with Anesthesia: Yes Social History Social History Patient Tobacco Use Status: Never used Tobacco Smoked in Last 30 Days: No Use of substances other than those prescribed or required for medical reasons: Yes Substance Use Type: Marijuana Substance Use Frequency: Daily Are you DNR?: No Advance Directives: No Advance Directives Information Provided: No Meds Allergies Allergy/AdvReac Type Severity Reaction Status Date / Time No Known Allergies Allergy Verified 01/15/23 05:11 Active Medications: Current Medications Cefotetan Disodium 2 gm/ (Sodium Chloride) 50 mls @ 100 mls/hr IV PREOP ONE Stop: 01/15/23 12:38 Home Medications Medication Instructions Recorded Confirmed Last Taken Type naproxen sodium 220 mg tablet 220 mg PO Q12H PRN Pain 01/15/23 01/15/23 Unknown History (Aleve) Exam Exam Date and Time: January 15, 2023 1223 Height,Weight and Vital Signs: Height 5 ft 4 in Weight 90.718 kg Last Vital Signs Temp 98.4 F 01/15/23 11:50 Pulse 70 01/15/23 11:50 Resp 16 01/15/23 11:50 BP 142/101 H 01/15/23 11:50 Pulse Ox 97 01/15/23 11:50 O2 Del Method Room Air 01/15/23 11:50 Pertinent Lab Results Pertinent Lab Results: Laboratory Tests 01/15/23 01/15/23 01/15/23 05:21 05:54 06:48 WBC 12.3 H RBC 4.47 L Hgb 13.6 L Hct 38.5 L MCV 86.1 MCH 30.4 MCHC 35.3 RDW 12.4 Plt Count 226 MPV 11.9 Immature Gran % (Auto) 0.3 Neut % (Auto) 68.0 Lymph % (Auto) 21.8 [place] % (Auto) 8.9 Eos % (Auto) 0.7 Baso % (Auto) 0.3 Lymph # (Auto) 2.7 [place] # (Auto) 1.1 Eos # (Auto) 0.1 Baso # (Auto) 0.0 Abs Immat Gran (auto) 0.04 H Absolute Neuts (auto) 8.3 Absolute Nucleated RBC 0.000 Nucleated RBC % (auto) 0.0 Sodium 139 Potassium 3.7 Chloride 107 Carbon Dioxide 22 Anion Gap 15 BUN 8 L Creatinine 0.72 Estim Creat Clear Calc 153.7 Estimated GFR > 60 Random Glucose 113 Lactic Acid 0.6 Calcium 9.6 Total Bilirubin 0.6 Direct Bilirubin 0.2 AST 17 ALT 29 Alkaline Phosphatase 79 Total Protein 7.5 Albumin 4.4 Lipase 13 Urine Color Urine Appearance Urine pH Ur Specific [place] Urine Protein Urine Glucose (UA) Urine Ketones Urine Blood Urine Nitrite Ur Leukocyte Esterase 01/15/23 10:36 WBC RBC Hgb Hct MCV MCH MCHC RDW Plt Count MPV Immature Gran % (Auto) Neut % (Auto) Lymph % (Auto) [place] % (Auto) Eos % (Auto) Baso % (Auto) Lymph # (Auto) [place] # (Auto) Eos # (Auto) Baso # (Auto) Abs Immat Gran (auto) Absolute Neuts (auto) Absolute Nucleated RBC Nucleated RBC % (auto) Sodium Potassium Chloride Carbon Dioxide Anion Gap BUN Creatinine Estim Creat Clear Calc Estimated GFR Random Glucose Lactic Acid Calcium Total Bilirubin Direct Bilirubin AST ALT Alkaline Phosphatase Total Protein Albumin Lipase Urine Color Yellow Urine Appearance Clear Urine pH 7.0 Ur Specific [place] 1.025 Urine Protein Negative Urine Glucose (UA) Negative Urine Ketones 15 Urine Blood Negative Urine Nitrite Negative Ur Leukocyte Esterase Negative Airway Mallampati Class: II TM Dist: >3cm Neck ROM: Full Heart: rrr Lungs: cta Assessment and Plan Assessment Anesthesia Assessment: Anesthesia Plan Discussed, Smoking Cess. Discussed and Chart Reviewed Final Anesthetic Review Family History of Problems with Anesthesia: No History of Problems with Anesthesia: Yes NPO: Yes ASA Class: II Final Preanesthetic Review: No Changes in Pt Med Stat, Meds/Allgs Chart Reviewed, Consent Obtained/Reviewed and Anes Risks/Benef Reviewed Patient Risk: Intermediate Procedure Risk: Intermediate Anesthetic Plan Anesthetic Plan: GA Disposition: Standard PACU
--- NOTE | 2023-01-15 14:20 | P.OP_ITS ---
Operative Note Operative Note Date of Service: 01/15/23 Narrative: Preoperative diagnosis: Massive size Acute cholecystitis Postop diagnosis: [] Acute phlegmonous cholecystitis Procedure [] laparoscopic cholecystectomy Surgeon: [] Leonid Supervisor [employer]: [] TARA Tyler Type of Anesthesia: [] General Indication for surgery: [] Very corpulent abdomen. Markedly turgid phlegmonous gallbladder. Soft Omental and gastric adhesions to the gallbladder. Very intrahepatic gallbladder. Findings: [] Patient brought to the operating room, placed on the operating table in a supine position, after adequate level of general anesthesia was induced, the patient's abdomen was prepped and draped in usual sterile fashion. Using a supraumbilical curvilinear incision, Shaffer technique was used to insufflate the abdominal cavity to 15 mm of CO2. Upper midline and right subcostal ports were placed under direct laparoscopic view, and the patient positioned in reverse Trendelenburg and tilted to the left. Findings were as noted above. Because of the marked tugidity, the gallbladder was decompressed with an aspirating device so it could be grasped with laparoscopic graspers, and was retracted superiorly and laterally. Gastric and omental adhesions were swept off the gallbladder where its hilum was approached. Cystic duct and cystic artery were each identified, circumferentially skeletonized, traced directly into the gallbladder and critical view obtained. Each was clipped proximally x2, distally x1, and transected. Markedly intrahepatic massive phlegmonous gallbladder was then cauterized from the gallbladder fossa using Bovie. Specimen was placed in an Endo-Catch bag, and retrieved through the umbilical port. This port incision had to be extended because of the enormous size of the specimen. The abdominal cavity was very copiously irrigated, and hemostasis secured. All ports were removed under direct laparoscopic view. Wounds were closed in the following manner; umbilical wound had its fascia reapproximated using interrupted 0 Vicryl sutures. Skin wounds were closed using subcuticular 4-0 Vicryl sutures followed by Steri-Strips and sterile dressings. Wounds were infiltrated with 0.5% Marcaine at completion. Sponge, needle, and instrument counts were reported to be correct. Patient tolerated the procedure well and emerged anesthesia in stable condition. EBL minimal
[2023-01-15] MEDS: ondansetron HCL 4 MG/2 ML VIAL IVPUSH (14:49)
--- NOTE | 2023-01-18 12:24 | PM.DS ---
DS: Providers Provider Date of Service: 01/15/23 Date of admission: 01/15/23 12:38 Date of discharge: 01/15/23 Primary care physician: [facility] Attending physician on admission: Shay Jaquez Attending physician on discharge: Shay Jaquez DS: Diagnosis Discharge Diagnosis (1) Acute cholecystitis: Status: Acute (2) Gallstones: Status: Acute DS: Summary Hospital Course Hospital Course: HPI AT ADMISSION: Jaylon Lawson is a 27 year old male who presents with severe right upper quadrant pain radiating around to his back. Patient has had multiple bouts of biliary colic in the past and was seen emergency room recently with a similar episode. He has never been jaundiced before. He is tolerating his diet otherwise. Has regular bowel habits. Chart was reviewed and patient evaluated. Sonogram is consistent with acute cholecystitis.? HOSPITAL COURSE: The patient was admitted to the surgical service for further treatment of the acute cholecystitis. On 01/15/23, a laparoscopic cholecystectomy was performed by Dr. Jaquez without complication. The patient tolerated the procedure well. He felt well in recovery and felt ready for discharge to home. He was tolerating a solid diet and had good pain control. He was discharged on 01/15/23 in stable condition. He is to follow up in the office in [address] Jaquez. Status at Discharge Functional status at discharge: independent ambulation Overall status at discharge: patient is progressing back to baseline Time Spent with Patient Time attestation: Total time managing care of this patient today ____ minutes. Discharge coordination time: Less than 30 minutes Quality: Safe Use of Opioids Does Pt have an Active Cancer Diagnosis on the Problem List?: No Quality: Stroke Does the patient have a stroke diagnosis?: No Physical Exam Vital Signs: Vital Signs: Last Vital Signs Temp 98.9 F 01/15/23 16:30 Pulse 76 01/15/23 16:30 Resp 18 01/15/23 16:30 BP 150/80 H 01/15/23 16:30 Pulse Ox 100 01/15/23 16:30 O2 Del Method Room Air 01/15/23 16:30 O2 Flow Rate 2 01/15/23 15:45 BMI result Body Mass Index 34.3 Const: General: comfortable, no acute distress and alert Orientation/consciousness: patient oriented x3 Resp: Effort & Inspection: normal respiratory effort GI: Inspection: No distended and Yes incision (dressings c/d/i) Palpation (GI): Soft to palpation, Tenderness to palpation present (GI) (incisional), no guarding and not rigid Skin: General skin exam: no rashes or lesions noted Neuro: General: patient oriented x3 DS: Data Data Completed and Pending Pending studies at discharge: Pending at discharge 01/15/23 14:04 Surgical [PTH] Routine Labs on day of discharge: Preliminary micro results at discharge 01/15/23 06:48 Blood Culture - Preliminary Blood - Venous No growth after 48 hours. 01/15/23 06:48 Blood Culture - Preliminary Blood - Venous No growth after 48 hours. Discharge Plan Discharge Patient Disposition: Home, Self-Care Discharge Diagnosis: Acute cholecystitis Referrals: [facility] [Primary Care Provider] - 1 Week Discharge Medications: New hydrocodone-acetaminophen 5-325 mg tablet 1 tab PO Q4-6H PRN (Reason: pain) Qty: 30 0RF Rx Instructions: Partial Fill upon patient request. Held naproxen sodium [Aleve] 220 mg Tablet 220 mg PO Q12H PRN (Reason: Pain) Hold Instructions: Resume on 01/16/23. Discharge Orders: Discharge Order (Routine); Ordered 01/15/23 Ordered By: Shay Jaquez Diet: Advance to usual diet Activity on Discharge: No heavy lifting Stand Alone Forms: Patient Portal Discharge page Activity Restrictions/Additional Instructions: Ice to wound 20 minutes several times today and tomorrow. May shower in 2 days. Remove outside dressing only. Leave Steri-Strips intact. No strenuous activities Care Plan Goals: Return to baseline Health Concerns: None Plan of Treatment: Convalescence Assessment: Stable condition Discharge Date/Time: 01/15/23 16:57
== END 2023-01-15 16:57 | disposition home or self-care (01) ==
LOC: HO.ED 11:36 → HO.EDOVER 12:48
PROVIDERS: Surgery; Admitting Provider Physician Assistant Surgical; Emergency Provider Student in an Organized Health Care Education/Training Program; Visit Provider Physician Assistant Surgical
PROC: 0FT44ZZ Resection of Gallbladder, Percutaneous Endoscopic Approach (ICD-10-PCS; CPT 47562; principal; 2023-01-15 14:10)
DX: K80.00 Calculus of gallbladder with acute cholecystitis without obstruction (principal); R10.11 Right upper quadrant pain
CPT/HCPCS: 47562; 36415; 76705; 80048; 80076; 81003; 83605; 83690; 85025; 87040; 88304; 96361; 96365; 96375; 96376; 99218; 99285; J0131; J0690; J1100; J1170; J2250; J2405; J2550; J2795; J3010

== ENCOUNTER → 2023-01-15 05:42 | Outpatient (BNV) | payer MEDICARE, MEDICAID, SELFPAY | PROVIDERS: Emergency Provider Student in an Organized Health Care Education/Training Program; Visit Provider Surgery | DX: K81.0 Acute cholecystitis (principal) | CPT/HCPCS: 47562; 99024; 99223 ==

== ENCOUNTER 2023-01-22 11:49 | Outpatient (AMB) | payer MEDICAID, SELFPAY ==
[2023-01-22 11:55] VITALS: BP 118/72; PULSE 86
--- NOTE | 2023-01-22 11:55 | A.OFFVIS_ITS ---
Intake Vital Signs 01/22/23 11:55 Weight 189 lb BP 118/72 Blood Pressure Location Rt brachial Position Sitting Pulse 86 Intake Visit Reasons: s/p lap obi Intake Note: Patient here s/p lap obi. Reports superior incision looks red and tender to touch. Thinks it might be infected. Takes Ibuprofen as needed. Roving Teller Required: No Accompanied by: Self / Same As Patient Allergies No Known Allergies Allergy (Verified 01/22/23 11:56) HPI HPI Comments History of Present Illness Details Patient presents for follow-up. He has time diet having normal bowel habits. Has minimal incisional discomfort. He is otherwise doing well. Increase his activity level slowly. PFSH Medical History Gallstones Overweight Surgical History Hx of tonsillectomy Social History Patient Tobacco Use Status: Never used Tobacco Substance Use Type: Marijuana Physical Exam Vital Signs: Last Vital Signs Pulse 86 01/22/23 11:55 BP 118/72 01/22/23 11:55 Eyes Other: Anicteric GI Other: Abdomen soft. Wound clean dry and intact. Assessment & Plan Assessment & Plan (1) Acute cholecystitis: Code(s): K81.0 - Acute cholecystitis Plan Patient has been given local instructions, and will follow-up p.r.n.. Coding Level of Care Code Global (67057) Diagnoses Acute cholecystitis K81.0
== END 2023-01-22 12:01 | disposition home or self-care (01) ==
PROVIDERS: Visit Provider Surgery
DX: K81.0 Acute cholecystitis (principal)
CPT/HCPCS: 99024

== ENCOUNTER → 2023-01-22 11:49 | Outpatient (BNVA) | payer MEDICAID, SELFPAY | PROVIDERS: Visit Provider Surgery ==

== ENCOUNTER 2024-10-09 08:46 | Outpatient (REF) | payer MEDICAID, SELFPAY ==
--- OUTSIDE RECORDS SUMMARY | 2024-10-09 09:29 | XMS_ITS | Encounter Summary ---
Author Organization [employer] Address [address] [place] [address] 7[address] [place] [address] Care Team Providers Care Paleontology Teacher Name Role Phone Name, Phill MILLER Primary Care Provider [phone] Reason for Visit * Reason Comments initial visit Encounter Details Date Type Department Care Team ([facility] st Contact Info) Description 10/04/2024 9:00 AM EDT Office Visit [facility] [address] [place], [place] [id number] Name, MD Phill [address] [place] [address] Tinea pedis, unspecified laterality (Primary Dx); Folliculitis; Obesity (BMI 30-39.9); Family history of diabetes mellitus; Encounter for immunization Social History Tobacco Use Types Packs/Day Years Used Date Smoking Tobacco: Former Cigarettes Passive Smoke Exposure: Never Smokeless Tobacco: Former Alcohol Use Standard Drinks/Week Comments Not Currently 0 (1 standard drink = 0.6 oz pur e alcohol) Depression Answer Date Recorded Patient Health Questionnaire-9 Score 3 10/04/2024 Patient Health Questionnaire-9 Score 3 10/04/2024 Last PHQ-9: Questionnaire Data Not on file 0 10/04/2024 Housing Stability Answer Date Recorded What is your housing situation today? I have savana ng 09/27/[address] you li ve. Do you have problems with any of the following? None of the above 09/27/2024 Food Insecurity Answer Date Recorded Within the past 12 months, y ou worried that your food would run out before you got money to buy more: Never True 09/27/2024 Within the past 12 months,th e food you bought just didn't last and you didn't have enough money to get more: Never True Transportation Answer Date Recorded In the past 12 months, has l ack of transportation kept you from medical appts, meetings, work or from getting things needed for daily living? No 09/27/2024 Utilities Answer Date Recorded In the past 12 months, has t he electric, gas, oil or water company threatened to shut off services in your home? No 09/27/2024 Depression Answer Date Recorded Patient Health Questionnaire-2 Score 0 10/04/2024 Internet Access Answer Date Recorded Internet Access Q1 Yes 09/27/2024 Internet Access Q2 Not on file 09/27/2024 Sex and Gender Information Value Date Recorded Sex Assigned at Male 05/04/2022 10:16 AM EDT Legal Sex Male 10:16 AM EDT Gender Identity Male 03/16/2024 8:43 AM EDT Sexual Orientation Straight 03/16/2024 8: 43 AM EDT documented as of this encounter Last Filed Vital Signs Vital Sign Reading Time Taken Comments Blood Pressure 127/86 10/04/2024 9:09 AM EDT Pulse 93 10/04/2024 9:09 AM EDT Temperature 36.4 ??C (97.5 ??F) 10/04/2024 9:09 AM ED T Respiratory Rate 21 10/04/2024 9:09 AM EDT Oxygen Saturation 98% 10/04/2024 9:09 AM EDT Inhaled Oxygen Concentration - - Weight 94.8 kg (209 lb) 10/04/2024 9:09 AM EDT Height 162.6 cm (5' 4 ) 10/04/2024 9:09 AM EDT Body Mass Index 35.87 10/04/2024 9:09 AM EDT documented in this encounter Progress Notes * Phill Reed MD - 10/04/2024 9:00 AM EDT Subjective Patient ID: Jaylon Yi is a 28 y.o. male who presents for initial visit. Patient comes for the first time to see me. He is accompanied by his . The patient is obese. Hehad asthma as a child but is currently without any respiratory symptoms. He smokes marijuana. He does not drink alcohol or use illicits. He is not interested in STD testing. The patient admits to drinking about 8 cans of soda per day. He has a family history of diabetes. The patient has complaints of years of very itchy tinea pedis. The patient also has itchy rash on the groins and thighs consistent with folliculitis. He agreed with Tdap vaccination today. Review of Systems Constitutional: Negative for chills, fatigue and fever. HENT: Negative for sore throat. Respiratory: Negative for cough, chest tightness and shortness of breath. Cardiovascular: Negative for chest pain, palpitations and leg swelling. Gastrointestinal: Negative for abdominal pain and blood in stool. Skin: See HPI Visit Vitals BP 127/86 (BP Location: Left arm, Patient Position: Sitting, BP Cuff Size: Large adult) Pulse 93 Temp 97.5 ??F (36.4 ??C) (Temporal) Resp 21 Ht 5' 4 (1.626 m) Wt 209 lb (94.8 kg) SpO2 98% BMI 35.87 kg/m?? Smoking Status Former BSA 2.07 m?? Objective Physical Exam Constitutional: Appearance: Normal appearance. Cardiovascular: Rate and Rhythm: Normal rate and regular rhythm. Heart sounds: No murmur heard. Pulmonary: Effort: Pulmonary effort is normal. No respiratory distress. Breath sounds: No wheezing, rhonchi or rales. Abdominal: Palpations: Abdomen is soft. Tenderness: There is no abdominal tenderness. Musculoskeletal: Right lower leg: No edema. Left lower leg: No edema. Skin: Comments: The patient has foot rash between the toes consistent with tinea pedis. The patient has groin rash consistent with folliculitis. The patient usually shaves the pubic area and inner thighs. Neurological: Mental Status: He is alert. Assessment/Plan Diagnoses and all orders for this visit: Tinea pedis, unspecified laterality Comments: I recommended p.o. fluconazole 150 mg weekly for 2 weeks I recommend clotrimazole/betamethasone cream We discussed importance of daily feet hygiene and towel drying feet thoroughly after washing feet. Orders: - CBC auto differential; Future - Comprehensive Metabolic Panel; Future Folliculitis Comments: I recommend to stop shaving the suprapubic area I recommend p.o. doxycycline Orders: - CBC auto differential; Future - Comprehensive Metabolic Panel; Future Obesity (BMI 30-39.9) Comments: I recommended to stop drinking sweetened beverages Check fasting blood work listed below Orders: - Lipid Panel, Standard; Future Family history of diabetes mellitus - CBC auto differential; Future - Comprehensive Metabolic Panel; Future Encounter for immunization - TDAP VACCINE 7 yrs + Other orders - doxycycline (Vibra-Tabs) 100 MG tablet; Take 1 tablet (100 mg) by mouth 2 times daily for 14 days. Take with a full glass of water and do not lie down for at least 30 minutes after. - fluconazole (Diflucan) 150 MG tablet; Take 1 tablet (150 mg) by mouth 1 (one) time per week for 14 days. - clotrimazole-betamethasone (Lotrisone) cream; Apply topically 2 times daily for 28 days. documented in this encounter Plan of Treatment Upcoming Encounters Date Type Department Care Team (Late st Contact Info) Description 12/05/2024 10:00 AM EDT Office Visit [facility] [address] [place] [address] Rebecca Herrera 01/23/2025 9:15 AM EDT Office Visit [facility] [address] [place] [address] Name, MD Phill [address] [place] [address] Scheduled Orders Name Type Priority Associated Diagnoses Orde r Schedule CBC auto differential Lab Routine Tinea pedis, unspecified laterality Family history of diabetes mellitus Folliculitis Expected: 10/04/2024 (Approximate), Expires: 10/04/2025 Comprehensive Metabolic Panel Lab Routine Tinea pedis, unspecified laterality Family history of diabetes mellitus Folliculitis Expected: 10/04/2024 (Approximate), Expires: 10/04/2025 Lipid Panel, Standard Lab Routine Obesity (BMI 30-39.9) Expected: 10/04/2024 (Approximate), Expires: 10/04/2025 documented as of this encounter Visit Diagnoses Diagnosis Tinea pedis, unspecified laterality- Primary Folliculitis Other specified disease of hair and hair follicles Obesity (BMI 30-39.9) Family history of diabetes mellitus Encounter for immunization documented in this encounter Additional Health Concerns Assessment Noted Time PHQ-9 Depression Total Score: 3 10/05/19 9:37 AM EDT documented as of this encounter Care Teams Paleontology Teacher Relationship Specialty Start Date End Date Name, MD Phill [address] [place] [address] PCP - General Internal Medicine 10/04/24 documented as of this encounter
--- OUTSIDE RECORDS SUMMARY | 2024-10-09 09:29 | XMS_ITS | Clinical Summary ---
Author Organization [employer] Address [address] [place] [address] 7[address] [place] [address] Care Team Providers Care Terminal Block Assembler Name Role Phone Name, Phill MILLER Primary Care Provider [phone] Allergies Active Allergy Reactions Criticality Noted Date Comments Amoxicillin Hives 03/16/2024 Penicillin G Hives 03/16/2024 Medications chlorhexidine (Peridex) 0.12 % solution Swish 15 mL morning and night for 1 minute. Spit, do not swallow. Do not eat or drink for 30 minutes following use. 473 mL 4 Active Additional Information Patient not taking.Reported on 06/06/2024 doxycycline (Vibra-Tabs) 100 MG tablet Take 1 tablet (100 mg) by mouth 2 times daily for 14 days. Take with a full glass of water and do not lie down for at least 30 minutes after. 28 tablet 5 10/19/19 25 Active fluconazole (Diflucan) 150 MG tablet Take 1 tablet (150 mg) by mouth 1 (one) time per week for 14 days. 2 tablet 5 10/19/19 25 Active clotrimazole-be tamethasone (Lotrisone) cream Apply topically 2 times daily for 28 days. 45 g 2 5 11/02/19 25 Active Active Problems Problem Noted Date Diagnosed Date Dental root caries 03/16/2024 Dental abscess 03/16/2024 Encounters Date Type Department Care Team Description 10/04/2024 9:00 AM EDT Office Visit [facility] [address] [place] [address] [place] [address] Name, MD Phill Tinea pedis, unspecified laterality (Primary Dx); Folliculitis; Obesity (BMI 30-39.9); Family history of diabetes mellitus; Encounter for immunization 10/04/2024 Travel 09/27/2024 Patient Outreach [facility] [address] [place] [address] Derek, MD Phill Pre-visit Planning (SDOH negative, Tobacco screening negative. ) 08/23/2024 Telephone [facility] [address] [place], [place] [phone] Filemon Weinstein MD from Last 3 Months Immunizations Name Administration Dates Next Due Tdap 10/04/2024 Family History Medical History Relation Name Comments Diabetes Mother Relation Name Status Comments Mother Social History Tobacco Use Types Packs/Day Years Used Date Smoking Tobacco: Former Cigarettes Passive Smoke Exposure: Never Smokeless Tobacco: Former Tobacco Cessation:Counseling Given: Not Answered Alcohol Use Standard Drinks/Week Comments Not Currently [...] Orientation Straight 03/16/2024 8: 43 AM EDT Last Filed Vital Signs Vital Sign Reading [...] Mass Index 35.87 10/04/2024 9:09 AM EDT Plan of Treatment Upcoming Encounters Date Type Department Care Team (Late st Contact Info) Description 12/05/2024 10:00 AM EDT Office Visit [facility] ADULT DENTAL [address] [place] [address] Rebecca Herrera 01/23/2025 9:15 AM EDT Office Visit [facility] [address] [place] [address] Name, MD Phill [address] [place] [address] Health Maintenance Due Date Last Done Comments HIV Screening 1993 Lipid Panel 1993 Family Planning (PISQ) 2008 Hepatitis C Screening 10/14/2011 COVID-19 Vaccine ( season) 2024 07/18/2021 Influenza Vaccine (#1) 2024 04/07/2013, 2011 Dental Oral Exam 12/06/2024 06/06/2024, 07/14/2012 Dental Prophylaxis 12/06/2024 06/06/2024, 03/24/2012 Dental X-Ray: Bitewings 06/07/2025 06/06/2024, 03/24 Alcohol/Substance Use Screening 10/04/2025 10/04/2024 Depression Screening 10/04/2025 10/04/2024, 10/05/19 SDOH Screening 10/04/2025 10/04/2024 Tobacco Screening 10/04/2025 10/04/2024 Dental X-Ray: Full Mouth 03/17/2027 024, 07/14/2012, 03/24/2012 DTaP/Tdap/Td Vaccines (7 - Td or Tdap) 10/04/2034 10/04/2024, 03/19/2006, 12/14/1997, Additional history exists Zoster Vaccines (1 of 2) 10/14/2043 RSV Patients and Patients Aged 60 years or older (1 - 1-dose 75+ series) 2068 Hepatitis B Vaccines Completed 04/20/1994, 02/16/1994, 1993 HIB Vaccines Completed 09/28/1995, 04/04, 02/16/1994, Additional history exists IPV Vaccines Completed 12/14/1997, 04/04, 02/16/1994, Additional history exists Hepatitis A Vaccines Completed 01/02/2010, 12/28/19 09 HPV Vaccines Aged Out 08/19/2010, 02/03, 01/02/2010 No longer eligible based on patient's age to complete this topic Meningococcal Vaccine Completed 04/23/2011 , 03/19/2006, 03/19/2006 Pneumococcal Vaccine: Pediatrics (0 to 5 Years) and At-Risk Patients (6 to 49) Years) Aged Out No longer eligible based on patient's age to complete this topic RSV under 20 months Aged Out No longe r eligible based on patient's age to complete this topic Rotavirus Vaccines Aged Out No longer eligible based on patient's age to complete this topic Procedures Procedure Name Priority Date/Time Associated Diagnosis Comments PROPHYLAXIS - ADULT Routine 06/06/2024 2 :00 PM EST BITEWINGS - 4 RADIOGRAPHIC IMAGES Routine 06/06/2024 2:00 PM EST PERIODIC ORAL EVALUATION - ESTABLISHED PATIENT Routine 06/06/2024 2:00 PM EST Encounter for dental examination Dental calculus Acute gingival inflammation PANORAMIC RADIOGRAPHIC IMAGE Routine 03/16/2024 11:30 AM EDT from Last 3 Months or Most Recently Relevant to Health Maintenance Insurance [facility] [employer]AND[employer] [place] [phone] DENTAL-[facility] [place] [address] Care Teams Terminal Block Assembler Relationship Specialty Start Date End Date Name, MD Phill [address] [facility] [place] [address] PCP - General Internal Medicine 10/04/24
--- OUTSIDE RECORDS SUMMARY | 2024-10-09 09:29 | XMS_ITS | Encounter Summary ---
Author Organization [employer] Address [address] [place] [address] Care Team Providers Care Works Manager Name Role Phone Name, Phill MILLER Primary Care Provider [phone] Encounter Details Date Type Department Care Team (Latest Contact Info) Description 10/04/2024 Travel Social History Tobacco Use Types Packs/Day Years [...] AM EDT documented as of this encounter Plan of Treatment Upcoming Encounters Date Type Department Care Team (Late st Contact Info) Description 12/05/2024 10:00 AM EDT Office Visit [facility] [address] [place] [address] Rebecca Herrera 01/23/2025 9:15 AM EDT Office Visit [facility] [address] [place] [address] NamePhill MD [address] [place] [phone] documented as of this encounter Visit Diagnoses Not on filedocumented in this encounter Additional Health Concerns Assessment Noted Time PHQ-9 Depression Total Score: 3 10/05/19 25 9:37 AM EDT documented as of this encounter Care Teams Works Manager Relationship Specialty Start Date End Date NamePhill MD [address] [place] [id number] PCP - General Internal Medicine 10/04/24 documented as of this encounter
[2024-10-09 11:12] LABS: MANUAL DIFF FLAG NO
[2024-10-09 11:23] LABS: Basophils Percent Auto 0.4 % (0-2); Eosinophils Absolute Auto 0.1 X10*3/uL (0.0-0.4); Eosinophils Percent Auto 1.8 % (0-4); Hematocrit 39.5 % (42.0-52.0); Hemoglobin 14.3 g/dl (14.0-18.0); Imm Gran Abs Auto 0.02 X10*3/uL (0.00-0.03); Imm Gran Pct Auto 0.3 % (0.0-0.4); Lymphocytes Absolute Auto 3.2 X10*3/uL (1.2-4.9); Lymphocytes Percent Auto 40.8 % (20-40); Mean Corpuscular HGB Conc 36.2 g/dl (31.0-36.0); Mean Corpuscular Volume 85.5 fL (80.0-98.0); Mean Platelet Volume 12.1 fL (9.4-12.4); Monocytes Absolute Auto 0.5 X10*3/uL (0.1-1.2); Neutrophils Absolute Auto 3.9 x10*3/uL (2.0-8.3); Neutrophils Percent Auto 49.7 % (45-73); Platelet Count 219 X10*3/uL (160-400); Red Blood Count 4.62 X10*6/uL (4.60-5.80); Red Cell Distribution Width 13.2 % (11.0-16.0); White Blood Count 7.7 X10*3/uL (4.8-10.8)
[2024-10-09 13:36] LABS: Alanine Aminotransferase 51 U/L (0-40); Albumin Level 4.4 g/dL (3.5-5.0); Alkaline Phosphatase 66 U/L (39-117); Anion Gap 10 (12-20); Aspartate Amino Transferase 32 U/L (5-37); Bilirubin Total 0.3 mg/dL (0.0-1.0); Blood Urea Nitrogen 12 mg/dL (9-16); Calcium 9.4 mg/dL (8.4-10.2); Carbon Dioxide 26 mmol/L (22-29); Chloride 108 mmol/L (96-108); Cholesterol 144 mg/dL (<200); Estimated Glomerular Filt Rate > 60; Glucose Random 92 mg/dL (60-115); HDL Cholesterol 29 mg/dL (>40); LDL Cholesterol Calculated 67 mg/dL (<100); Potassium 4.2 mmol/L (3.3-5.1); Sodium 140 mmol/L (135-145); Total Protein 7.3 g/dL (6.5-8.0); Triglycerides 240 mg/dL (<150)
== END 2024-10-09 08:47 | disposition home or self-care (01) ==
LOC: HO.HHCL 08:46
PROVIDERS: Visit Provider Internal Medicine Geriatric Medicine
DX: B35.3 Tinea pedis (principal); E66.9 Obesity, unspecified; L73.9 Follicular disorder, unspecified; Z83.3 Family history of diabetes mellitus
CPT/HCPCS: 36415; 80053; 80061; 85025